=== PATIENT | female | born 1970 | race Caucasian/White ===

== ENCOUNTER 2017-02-17 13:06 | Day surgery (SDC) | payer BC ==
[~2017-02-17] VITALS: Ht 152.4 cm; Wt 62.1 kg
[~2017-02-17 13:06] MED LIST: DOCU-144 PO; FERR325C PO; IBUP-1542 PO; OXYC-281 PO
[2017-02-17 15:08] VITALS: Ht 152.4 cm; Wt 62.1 kg
[2017-02-17 15:33] VITALS: BP 93/60; PULSE 74; RESP 18
[2017-02-17] MEDS ORDERED: LIDOCAINE 2% (SDV) 5 ML INJ ONE (15:35)
[2017-02-17] MEDS ORDERED: PROPOFOL 20 ML ONE (15:35)
[2017-02-17] MEDS ORDERED: MIDAZOLAM 1 MG/ML 2 ML INJ ONE (15:36)
[2017-02-17 16:30] VITALS: BP 114/60; PULSE 72; RESP 18
--- NOTE | 2017-02-17 17:53 | GILP ---
DATE OF PROCEDURE: 02/17/2017 NAME OF PROCEDURE: Colonoscopy with biopsies. SURGEON: Ernie Aguilar MD. PREMEDICATION: Monitored anesthesia care by anesthesiologist. INSTRUMENT USED: Olympus colonoscope. PREPARATION: Adequate. TECHNIQUE: After informed consent, with the patient/relatives understanding the procedure, its indic ations potential risks and complications, including but not limited to: allergic reaction, bleeding, perforation, infection, missed lesions and after all pertinent questions were answered to the patie nt's satisfaction, the patient/relatives signed the witnessed informed consent. Following this, premedication was administered slowly IV push by under careful cardiovascular and re spiratory monitoring with pulse oximetry, automatic blood pressure and potline monitor. Once the sedativ e effect was achieved, the patient was placed in the left lateral decubitus position, digital rectal examination was performed. The colonoscope was then introduced and advanced under visual control th roughout all segments of the colon including: the rectum, sigmoid, descending colon, splenic flexure , transverse colon, hepatic flexure, ascending colon and finally reaching the cecum which was clearl y identified by transillumination, finger indentation and the ileocecal valve. Careful examination o f the mucosa of the lower gastrointestinal tract both on insertion as well as withdrawal of the inst rument disclosed the following findings: Rectal Examination: No evidence of perirectal disease, no masses. Colonic Mucosa: The colonic mucosa was entirely unremarkable throughout. The ileocecal valve was cl early identified and appears unremarkable. The instrument was withdrawn. We examined the mucosa in detail. No additional abnormalities are noted. Random biopsies were obta ined in the right and left side of the colon, given the patient's complaints of diarrhea to rule out microscopic, lymphocytic or collagenous colitis. Moderate-sized internal hemorrhoids are present. IMPRESSION: 1. Normal colonic mucosa to cecum. Rule out microscopic lymphocytic collagenous colitis. Biopsies are obtained. 2. Moderate sized internal hemorrhoids. RECOMMENDATIONS: The patient will continue present regimen. Pathology will be reviewed as soon as a vailable. Further recommendations will depend on the patient's clinical course as well as review of biopsies. Dictated By: ERNIE AGUILAR MS/NTS Conf#: [id number] DID#: [id number] CC: ERNIE AGUILAR;*EndCC*
--- NOTE | 2017-02-17 17:58 | GILP ---
DATE OF PROCEDURE: 02/17/2017 PROCEDURE: Esophagogastroduodenoscopy with biopsies. SURGEON: Ernie Aguilar MD. BRIEF HISTORY AND INDICATIONS: The patient is being evaluated for abdominal pain. PREMEDICATION: Monitored anesthesia care by anesthesiologist. INSTRUMENT USED: Olympus panendoscope. TECHNIQUE: After informed consent, with the patient/relatives understanding the procedure, its indic ations, potential risks and complications, including but not limited to: allergic reaction, bleeding , perforation or infection, and after all pertinent questions were answered to the patients satisfac tion, the patient/relatives signed witnessed informed consent. Following this, premedication was ad ministered slowly IV push under careful cardiovascular and respiratory monitoring with pulse oximetr y, automatic blood pressure and personnel administrator. Once the sedative effect was achieved the patient was place in the left lateral decubitus, the panendoscope was introduced and advanced under visual contr ol. Careful examination of the upper gastrointestinal tract, both on insertion as well as withdrawal of the instrument disclosed the following findings: ESOPHAGUS: The distal esophagus shows erythema, edema and superficial erosion of the mucosa. STOMACH: Upon entrance to the stomach air was insufflated, the gastric ovalle distended normally. T here is erythema and edema of the mucosa of a moderate degree. Biopsies were obtained to rule out H . pylori infection. PYLORUS: The pylorus appears patent and within normal limits, with no evidence of gastric outlet ob struction. DUODENUM: The duodenal mucosa was carefully examined in the duodenal bulb as well as the second por tion of the duodenum and appears unremarkable with no evidence of duodenitis, ulcer or neoplasm. The instrument was then withdrawn, the patient tolerated the procedure well and was transfer out of the endoscopy suite awake, and in good condition to continue recovery under observation IMPRESSION: 1. Erosive esophagitis. 2. Gastritis, rule out Helicobacter pylori infection, biopsies obtained. PLAN: The patient will be treated with PPIs. Pathology will be reviewed as soon as available. Dictated By: ERNIE AGUILAR MS/CATHY Conf#: [id number] DID#: [id number] CC: ERNIE AGUILAR;*EndCC*
== END 2017-02-17 16:05 | disposition home or self-care (01) ==
LOC: GIL 13:06
PROVIDERS: ATTEND Internal Medicine Gastroenterology
DX: Z12.11 Encounter for screening for malignant neoplasm of colon (principal); K29.30 Chronic superficial gastritis without bleeding; K20.8 Other esophagitis; K64.4 Residual hemorrhoidal skin tags; E78.5 Hyperlipidemia, unspecified; E78.00 Pure hypercholesterolemia, unspecified
CPT/HCPCS: 43239; 45380; 84703; 88305; 88312; J2250; Z7610